=== PATIENT | male | born 1990 | race Caucasian/White ===

== ENCOUNTER 2024-08-05 01:05 | Emergency (ER) | payer MEDICAID ==
[~2024-08-05] VITALS: Ht 170.2 cm; Wt 100.0 kg
[2024-08-05 01:12] VITALS: BP 143/97; PULSE 110; RESP 18; O2SAT 97
[2024-08-05] MEDS: LIDOCAINE HCL/PF 1% 10 MG/ML 5ML VIAL INFIL ONE (01:30)
[2024-08-05] MEDS: BACITRACIN ZINC OINT UDPKT TOP ONE (01:30)
[2024-08-05] MEDS: TETANUS, DIPHTHERIA, PERTUSSIS VAC/PF 0.5ML (>10YR OLD) IM ONE (05:07)
[2024-08-05 05:16] VITALS: TEMP 97.8
[2024-08-05] MEDS: ACETAMINOPHEN 500MG TABLET PO ONE (05:16)
== END 2024-08-05 05:16 | disposition home or self-care (01) ==
LOC: ER 01:14
DX: S41.111A Laceration without foreign body of right upper arm, initial encounter (principal); W22.8XXA Striking against or struck by other objects, initial encounter; Y93.89 Activity, other specified; Y92.89 Other specified places as the place of occurrence of the external cause; Y99.8 Other external cause status
CPT/HCPCS: 73090; 73130; 90715; 12004; 90471; 99284; Z7610